=== PATIENT | male | born 1990 | race Caucasian/White ===

== ENCOUNTER → 2019-02-06 | Outpatient (CLI) | payer OTHER ==
--- NOTE | 2019-02-06 17:39 | NEURO WORKBENCH EEG REPORT ---
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 Prior MRI Brain showed encephalomalacia in bother frontal lobes and the left temporal lobe. The patient is experiencing staring spells and headaches. This EEG was requested for evaluation of epileptiform activity. EEG Interpretation: This EEG was recorded during wakefulness, stage I, and stage II sleep. The awake EEG is characterized by a well organized background with a well developed and reactive posterior dominant rhythm (PDR) of approximately 12-13 Hz. The remainder of the background consisted of low amplitude frontally predominant beta activity. The EEG is symmetric in amplitudes and frequencies. There was occasional Mu rhythm noted in the left central region. Photic stimulation resulted in photic driving, and there was no epileptiform activity elicited with photic stimulation. Hyperventilation resulted in no significant background slowing, and no epileptiform activity was elicited. Stage I sleep was achieved and characterized by slow rolling eye movements, slowing of the background rhythm, and vertex waves. Stage II sleep was achieved and symmetric sleep spindles were noted. POSTs were also noted. There were no epileptiform abnormalities (no sharp waves and no spikes). There were no seizures. The EKG showed a regular rhythm with typically 42-52 beats per minute. EEG Impression: This EEG is within normal limits for age. There was no epileptiform activity or seizures. A single normal routine EEG does not rule out the possibility of epilepsy. If there is high clinical suspicion for epilepsy, then additional EEG evaluation should be considered with a repeat sleep-deprived EEG or more prolonged EEG monitoring. INTERPRETING NEUROLOGIST: Raciel Mitchell MD Board certified by the [place] [employer] in Neurology, Clinical Neurophysiology, and Sleep Medicine [facility]
== END ==
LOC: NEURO 08:32
PROVIDERS: ATTEND Psychiatry & Neurology Neurology
DX: R40.4 Transient alteration of awareness (principal)
CPT/HCPCS: 95819